=== PATIENT | male | born 1990 | race Asian ===

== ENCOUNTER 2022-12-13 16:03 | Emergency (ER) | payer SELFPAY ==
[~2022-12-13] VITALS: Ht 182.9 cm; Wt 92.0 kg
[2022-12-13 16:12] VITALS: BP 124/85; PULSE 91; RESP 20; TEMP 98.4; O2SAT 98
[2022-12-13 17:10] LABS: CLARITY URINE CLEAR (CLEAR); COLOR URINE YELLOW (YELLOW); KETONES URINE TRACE (NEGATIVE); LEUKOCYTE ESTERASE URINE NEGATIVE (NEGATIVE); NITRITE URINE NEGATIVE (NEGATIVE); OCCULT BLOOD URINE NEGATIVE (NEGATIVE); PROTEIN URINE TRACE (NEGATIVE); SPECIFIC GRAVITY URINE 1.028 (1.005-1.030); UROBILINOGEN URINE 0.2 E.U./dL (0.2-1.0)
[2022-12-13 17:21] LABS: BASOPHILS % 0.9 % (0.0-2.0); EOSINOPHILS % 9.5 % (0.0-5.0); HEMATOCRIT. 48.1 % (42.0-52.0); HEMOGLOBIN. 16.3 g/dL (14.0-18.0); LYMPHOCYTES % 36.9 % (20.0-50.0); MEAN CORPUSCULAR VOLUME 94.6 fL (80.0-94.0); MEAN PLATELET VOLUME 7.5 fl (7.4-10.4); MONOCYTES % 10.3 % (2.0-8.0); NEUTROPHILS % 42.4 % (40.0-76.0); PLATELET 236 x1000/uL (130-400); RED BLOOD CELL COUNT 5.08 mill/uL (4.7-6.1); RED CELL DISTRIBUTION WIDTH 13.6 % (11.6-14.6)
[2022-12-13 17:30] LABS: CHLORIDE 106 mEq/L (98-107)
[2022-12-13] MEDS ORDERED: SODIUM CHLORIDE 0.9% 1,000 ML IV ONE ×2 (22:00)
[2022-12-13 22:42] LABS: CREATINE KINASE 7948 IU/L (39-308)
== END 2022-12-14 00:03 | disposition left against medical advice (07) ==
LOC: ER 16:15 → CANBEDREQ 12-15 20:26
DX: Z53.21 Procedure and treatment not carried out due to patient leaving prior to being seen by health care provider (principal)
CPT/HCPCS: 99281; 80053; 81003; 82550; 85025; 36415; J7030